=== PATIENT | female | born 1960 | race Caucasian/White ===

== ENCOUNTER → 2019-04-11 09:17 | Outpatient (CLI) | payer BC, SELFPAY ==
--- NOTE | ~2019-04-11 | MR_ITS ---
EXAMINATION: MR knee RT wo con DATE: 04/11/2019 10:12 INDICATION: Medial meniscal tear presenting with stenting generalized right knee pain TECHNIQUE: Magnetic resonance imaging (MRI) of the right knee was performed without intravenous contr ast. Sequences included coronal PD-weighted FSE, coronal PD-weighted FS FSE, sagittal T2-weighted FS E, sagittal PD-weighted FS FSE and axial PD weighted fat saturated FSE. COMPARISON: None. FINDINGS: Medial compartment: Complex tear at the posterior horn of the medial meniscus which involves the free edge, superior and inferior articular surfaces. There is a horizontal longitudinal tear plane extending posteriorly to t he meniscal body which is medially extruded and subluxed caudally along the medial rim of the medial tibial plateau. In this region the meniscus has a thickened globular morphology with prominent increa sed intrasubstance signal suggesting secondary degeneration. Partial-thickness cartilage loss along t he medial tibial plateau and anterior to central weightbearing medial femoral condyle with more focal deep fissuring along the anterior weightbearing medial femoral condyle and anterior aspect of the me dial tibial plateau, the latter with mild underlying subarticular edema. Lateral compartment: Lateral meniscus is normal. Chondral ulceration with underlying small central subchondral osteophytes at the central weightbearing lateral femoral condyle. Cartilage at the lateral tibial plateau appear s relatively preserved. Patellofemoral compartment: Deep chondral ulceration and fissuring at the medial patellar facet, apical ridge and medial aspect o f the lateral facet. Central subchondral osteophyte along the patellar apical ridge projecting up to 2-3 mm beyond the level of the original articular cortex. Partial-thickness cartilage loss with chond ral surface regularity along the medial trochlea with deeper fissuring and ulceration along the infer ior trochlear groove. Ligaments and tendons: Anterior and posterior cruciate ligaments are normal. The medial collateral ligament and fibular lynn ateral ligament complex are normal. The extensor mechanism is normal. The visualized medial and later al hamstring tendons as well as the iliotibial band are normal. Fluid: Physiologic amount of fluid in the joint space. No loose osteochondral bodies identified. Osseous/other: Bone alignment is normal. No fracture or abnormal marrow replacing process. IMPRESSION: 1. Complex medial meniscal tear. 2. Tricompartmental osteoarthritis, moderate severity with moderate to high-grade chondromalacia in t he medial compartment and mild in the lateral and patellofemoral compartments, both with additional r egions of high-grade chondromalacia. Reviewed, dictated and finalized at location A. R HAND IMPRESSION: 1. Complex medial meniscal tear. 2. Tricompartmental osteoarthritis, moderate severity with moderate to high-gra de chondromalacia in the medial compartment and mild in the lateral and patello femoral compartments, both with additional regions of high-grade chondromalacia .
== END ==
PROVIDERS: PCP Orthopaedic Surgery; Visit Provider Orthopaedic Surgery
DX: S83.231A Complex tear of medial meniscus, current injury, right knee, initial encounter (principal); X58.XXXA Exposure to other specified factors, initial encounter; M17.11 Unilateral primary osteoarthritis, right knee
CPT/HCPCS: 73721

== ENCOUNTER 2019-08-19 11:15 | Outpatient (CLI) | payer BC, SELFPAY ==
[2019-08-19 11:52] LABS: Blood Urea Nitrogen 19 mg/dL (7-17); Calcium 9.4 mg/dL (8.4-10.2); Carbon Dioxide 27 mmol/L (22-30); Chloride 103 mmol/L (98-107); Estimated Glomerular Filt Rate 42; Glucose 132 mg/dL (65-105); Potassium 3.5 mmol/L (3.4-5.0); Sodium 140 mmol/L (137-145)
== END 2019-08-19 11:16 | disposition home or self-care (01) ==
LOC: ANHSURGERY 11:17
PROVIDERS: Anesthesiology; PCP Internal Medicine; Visit Provider Orthopaedic Surgery
DX: Z01.818 Encounter for other preprocedural examination (principal); E11.9 Type 2 diabetes mellitus without complications
CPT/HCPCS: 36415; 80048

== ENCOUNTER 2019-08-22 00:24 | Outpatient (CLI) | payer BC, SELFPAY ==
[2019-08-22 17:13] LABS: SARS-CoV-2 RNA PCR Negative
== END 2019-08-22 00:25 | disposition home or self-care (01) ==
LOC: ANHCOVIDDT 00:24
PROVIDERS: PCP Internal Medicine; Visit Provider Orthopaedic Surgery
DX: Z01.812 Encounter for preprocedural laboratory examination (principal); Z11.59 Encounter for screening for other viral diseases
CPT/HCPCS: 87635; C9803; U0003

== ENCOUNTER 2019-08-24 01:30 | Day surgery (SDC) | payer BC, SELFPAY ==
[2019-08-15 14:13] VITALS: BMI 30.4
[2019-08-24] VITALS (9 sets, daily range): BP systolic 111–134; BP diastolic 67–81; PULSE 57–87; RESP 12–18; TEMP 36.3–37; O2SAT 97–100
--- NOTE | 2019-08-24 07:32 | WPDHPUPDATE1 ---
History and Physical Update Update Date/Time: 08/24/19 07:32 History and Physical has been reviewed, including an updated exam of the patient. There are NO changes in the patient's condition. Risks, benefits, and alternatives have been discussed and questions answered. Patient agrees to proceed with procedure.
--- NOTE | 2019-08-24 09:29 | WPDANESEPPF ---
Anes - Initial Pre Proc Eval Procedure: Operation Date: 08/24/19 12:00 Proposed Procedures p Right Knee Arthroscopy, Proceed As Indicated - Michael Samson MD Date/Time: 08/24/19 09:29 Surgeon: Michael Samson MD Pre Op Diagnosis: Right Knee Medial Meniscus Tear Patient Data Age: 58 Gender: F Height: 1.73 m Weight: 90.72 kg Allergies Allergy/AdvReac Type Severity Reaction Status Date / Time No Known Allergies Allergy Verified 08/15/19 14:14 Home Medications Medication Instructions Recorded Confirmed Type glimepiride 4 mg tablet 4 mg PO QAM 03/25/19 08/15/19 History metformin 500 mg tablet 500 mg PO BID 03/25/19 08/15/19 History pantoprazole 40 mg tablet,delayed 40 mg PO BID 03/25/19 08/15/19 History release atorvastatin 40 mg tablet 40 mg PO DAILY #90 tablet 06/15/19 08/15/19 Rx clonazepam 1 mg tablet 1 mg PO DAILY #30 tablet 06/15/19 08/15/19 Rx lisinopril 20 1 tablet PO DAILY #90 tablet 06/15/19 08/15/19 Rx mg-hydrochlorothiazide 25 mg tablet semaglutide 1 mg SUB-Q WEEKLY 06/15/19 08/15/19 History tramadol 50 mg tablet 50 mg PO Q6H PRN #90 tablet 06/15/19 08/15/19 Rx diclofenac sodium 50 mg 50 mg PO BID #60 tablet 07/26/19 08/15/19 Rx tablet,delayed release insulin glargine [Lantus Solostar 20 - 26 unit SUBCUT HS 08/15/19 08/15/19 History U-100 Insulin] ropinirole 0.5 mg PO TID PRN 08/15/19 08/15/19 History chlorhexidine gluconate 4 % 1 applic TOPICAL ONCE #237 ml NS 08/17/19 Rx topical liquid Patient hx anesthesia problems: none Family hx anesthesia problems: none PMFSH Past Medical History Medical History (Updated 08/24/19 @ 09:30 by Sourav Lin MD) Anxiety Diabetes Diabetic polyneuropathy associated with type 2 diabetes mellitus High cholesterol Hypertension Major depressive disorder, single episode, unspecified Obesity Social History Social History Smoking status: Never smoker Alcohol intake: current Anes - Eval Final PreProcedure Day of Procedure 08/24/19 09:29 Patient weight: obese Heart: regular rate and rhythm Lungs: clear to auscultation and normal air movement Airway: Mallampati scale class II Neurological: alert and oriented Last oral intake: >/= 8 hours ASA classification: III Emergent: no Anesthetic plan: proceed Anesthesia type and monitoring: general LMA Informed Consent: The patient's anesthetic plan and its attendant risks and benefits were discussed with the patient/family/POA. Questions were solicited and answers provided to the satisfaction of the patient/family/POA.
[2019-08-24 11:29] LABS: Glucose Point of Care 142 (65-105)
[2019-08-24] MEDS: CELECOXIB 200 MG CAPSULE PO (11:30)
[2019-08-24] MEDS: LACTATED RINGERS 1,000 ML 30 ML IV CONT ×2 (11:30→13:20)
[2019-08-24] MEDS: ceFAZolin 2 GM/D5W 50 ML 2 GM/50 ML BAG IVPB (11:50)
--- NOTE | 2019-08-24 13:17 | PM.OP ---
Procedure Note - Brief Procedure Note - Brief Date of procedure: 08/24/19 Pre-op diagnosis: Right Knee Medial Meniscus Tear Post-op diagnosis: same Procedure performed: R KNEE SCOPE Anesthesia: GLMA Surgeon: Michael Samson MD Estimated blood loss (mL): 10 Complications: No immediate complications Condition: stable Disposition: PACU
[2019-08-24 13:33] LABS: Glucose Point of Care 146 (65-105)
--- NOTE | 2019-08-24 13:38 | SUR.PHASEI ---
1335- foot warm to touch. pulses strong, ice bag to knee.
--- NOTE | 2019-08-24 15:37 | SUR.PHASEII ---
LYRIC UPDATED UPON PT'S ARRIVAL TO OP. CALLED TO PULL UP TO EXIT.
--- NOTE | 2019-08-24 17:18 | OP_ITS ---
DATE OF PROCEDURE: 08/24/2019 POSTOPERATIVE DIAGNOSIS: Right knee medial meniscus tear and DJD. POSTOPERATIVE DIAGNOSIS: Right knee medial meniscus tear and DJD. PROCEDURE: Right knee arthroscopy with partial medial meniscectomy and major synovectomy. ANESTHESIA: General. COMPLICATIONS: None. INDICATIONS: This is a 58-year-old female with medial-sided knee pain that showed as a medial meniscus tear. She was indicated for right knee arthroscopy. DESCRIPTION OF PROCEDURE: The patient was taken to the operative room in stable condition and placed in supine position. General anesthesia was induced and the right lower extremity was sterilely prepped and draped from the toes to the thigh. Superomedial portal was used for an outflow cannula. Inferolateral portal was used for the camera. The camera was introduced. There was grade 3 chondromalacia of the patellofemoral joint. There was a significant amount of synovitis and Hoffa synovium and in the superior medial compartment. Next, the medial compartment was entered. There was a large complex tear of the medial meniscus, which involved the complete posterior horn. There was also significant amount of patchy full-thickness defect or near full thickness defect within the medial femoral condyle. A medial portal was established. The shaver was introduced and then limited chondroplasty was performed on the medial femoral condyle, and then the shaver and a biter were introduced at separate times and the medial meniscus tear was resected down to a smooth base. Next, the ACL was identified and was intact. There was a large osteophyte in the middle of the intercondylar notch in the base of the ACL that was impeding from the full extension, so a bur was used to bur that osteophyte down. She was able to perform full passive extension under direct visualization. Next, the lateral compartment was entered and there was no tear to the lateral meniscus. There was a large chondral defect that underwent chondroplasty. The patellofemoral joint then underwent limited chondroplasty. Synovectomy was performed in Hoffa synovium and then the superior medial compartment. The instruments were removed after thorough irrigation of the knee joint. The wounds were approximated with 4-0 nylon suture. Sterile dressing was applied. The patient was extubated. Efraín I MT: Neema
== END 2019-08-24 15:25 | disposition home or self-care (01) ==
PROVIDERS: PCP Internal Medicine; Visit Provider Orthopaedic Surgery
PROC: (CPT 29870; principal; 2019-08-24 12:00)
DX: M23.331 Other meniscus derangements, other medial meniscus, right knee (principal); M65.861 Other synovitis and tenosynovitis, right lower leg; E11.40 Type 2 diabetes mellitus with diabetic neuropathy, unspecified; I10 Essential (primary) hypertension; E78.00 Pure hypercholesterolemia, unspecified; F41.8 Other specified anxiety disorders; Z79.84 Long term (current) use of oral hypoglycemic drugs; Z79.4 Long term (current) use of insulin; E66.9 Obesity, unspecified; Z68.29 Body mass index [BMI] 29.0-29.9, adult
CPT/HCPCS: 29881; 29876; A9270; J0131; J0690; J1100; J1170; J2250; J2405; J2704; J3010; J7120

== ENCOUNTER 2020-03-08 14:05 | Day surgery (SDC) | payer BC, SELFPAY ==
[2020-03-08] VITALS (8 sets, daily range): BP systolic 103–137; BP diastolic 55–82; PULSE 77–95; RESP 12–18; TEMP 36.7–37; O2SAT 94–100
--- NOTE | 2020-03-08 14:33 | ED.GENADULT ---
HPI - General Adult General Chief complaint: Unspecified Stated complaint: UNABLE TO SWALLOW Time Seen by Provider: 03/08/20 14:16 Source: patient Mode of arrival: ambulatory Limitations: no limitations History of Present Illness HPI narrative: Patient is a 59-year-old female complaining of unable to swallow or keep anything down not even liquids after eating pork chop early this morning. Patient states that she has a history of esophageal stricture and had it dilated before. Patient denies any chest pain, shortness of breath, fever or chills. Related Data Home Medications Medication Instructions Recorded Confirmed glimepiride 4 mg tablet 4 mg PO QAM 03/25/19 12/19/19 pantoprazole 40 mg tablet,delayed 40 mg PO BID 03/25/19 12/19/19 release semaglutide 1 mg SUB-Q WEEKLY 06/15/19 12/19/19 Lantus Solostar U-100 Insulin 20 - 26 unit SUBCUT HS 08/15/19 12/19/19 metformin 500 mg tablet 1,000 mg PO BID tablet 10/19/19 12/19/19 Allergies Allergy/AdvReac Type Severity Reaction Status Date / Time No Known Allergies Allergy Verified 12/19/19 09:07 Review of Systems Review of Systems: All systems reviewed & are unremarkable except as noted in HPI and below Constitutional: Constitutional: Denies body ache(s), Denies chills, Denies excessive sweating, Denies fatigue, Denies fever(s), Denies headache(s), Denies lethargy, Denies malaise, Denies weakness and Denies weight loss Eyes: Eyes: Denies blurry vision, Denies change in vision and Denies loss of vision ENT: Denies dizziness, Denies ear discharge, Denies headache(s), Denies lip swelling, Denies epistaxis, Denies nasal congestion, Denies neck pain, Denies throat swelling and Denies tongue swelling Cardiovascular: Cardiovascular: Denies chest pain, Denies chest pain at rest, Denies chest pain with activity, Denies diaphoresis, Denies rapid heart rate, Denies edema, Denies irregular heart rhythm, Denies lightheadedness, Denies palpitations, Denies dyspnea and Denies dyspnea on exertion Respiratory: Respiratory: Denies chest congestion, Denies cough, Denies hemoptysis, Denies dyspnea and Denies dyspnea on exertion Gastrointestinal: Gastrointestinal: Denies abdominal pain, Denies melena, Denies hematochezia, Denies diarrhea, Denies nausea, Denies vomiting and Denies hematemesis Musculoskeletal: Musculoskeletal: Denies abnormal gait, Denies deformity, Denies joint swelling, Denies limited range of motion, Denies neck pain and Denies numbness Neurologic: Denies Abnormal speech present, Denies abnormal gait, Denies confusion, Denies dizziness, Denies headache(s), Denies focal weakness, Denies loss of vision, Denies numbness, Denies Other visual disturbances, Denies Sensory deficit (Neuro) and Denies weakness Psychiatric: Psychiatric: Denies confusion, Denies depression, Denies auditory hallucinations, Denies homicidal ideation and Denies suicidal ideation Endocrine: Endocrine: Denies cold intolerance, Denies excessive sweating, Denies fatigue, Denies heat intolerance and Denies palpitations Hematologic/Lymphatic: Hematologic/Lymphatic: Denies easy bleeding and Denies easy bruising Allergic/Immunologic: Allergic/Immunologic: Denies lip swelling, Denies throat swelling and Denies tongue swelling PMFSH Past Medical History Medical History (Updated 03/08/20 @ 16:32 by Jeremie Dasilva MD) Anxiety Diabetes Diabetic polyneuropathy associated with type 2 diabetes mellitus High cholesterol Hypertension Major depressive disorder, single episode, unspecified Obesity Surgical History Surgical History S/P knee surgery Family History Family History Father Hypertension Family history of diabetes mellitus in first degree relative, Onset Age: 62 Patient's father is Family history of type 2 diabetes mellitus Family history of lupus erythematosus Mother
[2020-03-08] MEDS: GLUCAGON FOR INJ 1 MG VIAL IV CONT (14:49)
[2020-03-08] MEDS: LACTATED RINGERS 1,000 ML 150 ML IV CONT ×2 (14:50→16:42)
[2020-03-08 14:57] LABS: Basophils Percent Auto 0.4 % (0.2-1.2); Eosinophils Absolute Auto 0.3 K/mm3 (0-0.3); Hemoglobin 11.7 g/dL (12.0-15.0); Immature Granulocyte Absolute 0.02 K/mm3 (0.00-0.031); Immature Granulocyte Percent A 0.2 % (0-0.5); Lymphocytes Absolute Auto 3.57 K/mm3 (0.9-3.2); Lymphocytes Percent Auto 39.6 % (18.3-44.2); Mean Corpuscular HGB Conc 33.4 g/dl (32-36); Mean Corpuscular Hemoglobin 28.8 pg (26-34); Mean Corpuscular Volume 86.2 fl (80-100); Mean Platelet Volume 10.8 fl (7.4-10.4); Monocytes Absolute Auto 0.4 K/mm3 (0.1-0.6); Monocytes Percent Auto 3.9 % (2.6-8.5); Neutrophils Absolute Auto 4.8 K/mm3 (1.3-6.7); Neutrophils Percent Auto 52.9 % (45.5-73.1); Platelet Count Result 269 k/mm3 (150-375); Red Blood Count 4.06 M/mm3 (4.2-5.4); Red Cell Distribution Width 12.5 % (11.5-14.5)
[2020-03-08 15:10] LABS: Alanine Aminotransferase 33 U/L (4-35); Albumin Level 4.3 g/dL (3.5-5.1); Alkaline Phosphatase 75 U/L (38-126); Anion Gap 9 mmol/L (8-16); Aspartate Amino Transferase 29 U/L (14-36); Bilirubin,Total 0.8 mg/dL (0.2-1.3); Blood Urea Nitrogen 18 mg/dL (7-17); Calcium 9.5 mg/dL (8.4-10.2); Carbon Dioxide 29 mmol/L (22-30); Chloride 103 mmol/L (98-107); Estimated CRCL calculation 49 ml/min; Estimated Glomerular Filt Rate 42; Glucose 140 mg/dL (65-105); Lipase 142 U/L (23-300); Potassium 3.6 mmol/L (3.4-5.0); Sodium 141 mmol/L (137-145)
[2020-03-08 15:17] LABS: INR 0.9
[2020-03-08 15:18] LABS: Partial Thromboplastin Time 29.7 SECONDS (22.3-36.8)
--- NOTE | 2020-03-08 16:31 | PC.NURSE ---
Updated pt and spouse, discussed POC, pt is alert and upright on stretcher, VSS.
--- NOTE | 2020-03-08 16:32 | WPDANESEPP ---
Anes - Eval Pre Procedure Procedure: Operation Date: 03/08/20 16:00 Proposed Procedures p Esophagogastroduodenoscopy/Stent Removal - Josafat Washburn MD Date/Time: 03/08/20 16:32 Pre Op Diagnosis: UNABLE TO SWALLOW Patient Data Age: 59 Gender: F Height: 5 ft 8 in Weight: 86.5 kg Last Vital Signs Temp 98.0 F 03/08/20 14:35 Pulse 77 03/08/20 16:30 Resp 13 03/08/20 16:30 BP 131/81 03/08/20 16:30 Pulse Ox 100 03/08/20 16:30 Allergies Allergy/AdvReac Type Severity Reaction Status Date / Time No Known Allergies Allergy Verified 12/19/19 09:07 Home Medications Medication Instructions Recorded Confirmed Type glimepiride 4 mg tablet 4 mg PO QAM 03/25/19 12/19/19 History pantoprazole 40 mg tablet,delayed 40 mg PO BID 03/25/19 12/19/19 History release lisinopril 20 1 tablet PO DAILY #90 tablet 06/15/19 12/19/19 Rx mg-hydrochlorothiazide 25 mg tablet semaglutide 1 mg SUB-Q WEEKLY 06/15/19 12/19/19 History Lantus Solostar U-100 Insulin 20 - 26 unit SUBCUT HS 08/15/19 12/19/19 History metformin 500 mg tablet 1,000 mg PO BID tablet 10/19/19 12/19/19 History rosuvastatin 40 mg tablet 40 mg PO DAILY #90 tablet 12/15/19 12/19/19 Rx tramadol 50 mg tablet 50 mg PO Q6H PRN #90 tablet 01/05/20 Rx clonazepam 1 mg tablet 1 mg PO DAILY #30 tablet 02/13/20 Rx Laboratory Tests 03/08/20 03/08/20 03/08/20 14:51 14:51 14:51 WBC 9.0 K/mm3 K/mm3 (4.5-10.0) RBC 4.06 M/mm3 L M/mm3 (4.2-5.4) Hgb 11.7 g/dL L g/dL (12.0-15.0) Hct 35.0 % L % (37.0-47.0) MCV 86.2 fl fl (80-100) MCH 28.8 pg pg (26-34) MCHC 33.4 g/dl g/dl (32-36) RDW 12.5 % % (11.5-14.5) Plt Count 269 k/mm3 k/mm3 (150-375) MPV 10.8 fl H fl (7.4-10.4) Immature Gran % (Auto) 0.2 % % (0-0.5) Neut % (Auto) 52.9 % % (45.5-73.1) Lymph % (Auto) 39.6 % % (18.3-44.2) Johnston % (Auto) 3.9 % % (2.6-8.5) Eos % (Auto) 3.0 % % (0-4.4) Baso % (Auto) 0.4 % % (0.2-1.2) Lymph # (Auto) 3.57 K/mm3 H K/mm3 (0.9-3.2) Johnston # (Auto) 0.4 K/mm3 K/mm3 (0.1-0.6) Eos # (Auto) 0.3 K/mm3 K/mm3 (0-0.3) Baso # (Auto) 0.0 K/mm3 K/mm3 (0.0-0.1) Abs Immat Gran (auto) 0.02 K/mm3 K/mm3 (0.00-0.031) Absolute Neuts (auto) 4.8 K/mm3 K/mm3 (1.3-6.7) Absolute Nucleated RBC 0.0 K/mm3 K/mm3 (0.0-0.012) Nucleated RBC % 0.0 % % (0.0-0.2) PT 13.0 Seconds Seconds (11.1-14.7) INR 0.9 APTT 29.7 SECONDS SECONDS (22.3-36.8) Sodium 141 mmol/L mmol/L (137-145) Potassium 3.6 mmol/L mmol/L (3.4-5.0) Chloride 103 mmol/L mmol/L (98-107) Carbon Dioxide 29 mmol/L mmol/L (22-30) Anion Gap 9 mmol/L mmol/L (8-16) BUN 18 mg/dL H mg/dL (7-17) Creatinine 1.30 mg/dL H mg/dL (0.7-1.0) Estim Creat Clear Calc 49 ml/min ml/min Estimated GFR 42 L (59 - ) Glucose 140 mg/dL H mg/dL (65-105) Calcium 9.5 mg/dL mg/dL (8.4-10.2) Total Bilirubin 0.8 mg/dL mg/dL (0.2-1.3) AST 29 U/L U/L (14-36) ALT 33 U/L U/L (4-35) Alkaline Phosphatase 75 U/L U/L (38-126) Total Protein 8.0 g/dL g/dL (6.3-8.2) Albumin 4.3 g/dL g/dL (3.5-5.1) Lipase 142 U/L U/L (23-300) Patient hx anesthesia problems: none Family hx anesthesia problems: none PMFSH Past Medical History Medical History Anxiety Diabetes Diabetic polyneuropathy associated with type 2 diabetes mellitus Essential (primary) hypertension Fatty (change of) liver, not elsewhere classified Food impaction of esophagus High cholesterol Hypertension Major depressive disorder, single episode, unspecif
[2020-03-08 16:46] LABS: Glucose Point of Care 139 (65-105)
--- NOTE | 2020-03-08 17:32 | WPDGICN ---
Assessment and Plan Assessment and plan (1) Food impaction of esophagus: Qualifiers: Encounter type: initial encounter Qualified Code(s): T18.128A - Food in esophagus causing other injury, initial encounter Code(s): T18.128A - Food in esophagus causing other injury, initial encounter Status: Acute Assessment and Plan: patient with a long history of GE reflux. Has had progressive dysphagia over recent months. Now presents with food impaction. Plan is for an EGD. Long-term anti-reflux measures and continuing proton pump inhibitor therapy will be essential period of further recommendations will be given after endoscopy today (2) GERD (gastroesophageal reflux disease): Code(s): K21.9 - Gastro-esophageal reflux disease without esophagitis Status: Acute (3) Dysphagia: Code(s): R13.10 - Dysphagia, unspecified Status: Acute GI Consult Note Consult date/time: 03/08/20 17:32 HPI: Ciara Ramos is a 59 year old female Seen in evaluation at the request of the emergency room. Patient has a known history of acid reflux. Has been maintained on pantoprazole 40 mg p.o. b.i.d.. Continues to have intermittent indigestion. Since November over the last 2-3 months has had difficulty swallowing. Food will catch in the mid substernal portion of the chest. She it was advised to proceed with EGD. However defer this because of the recent viral pandemic. This morning she ate pork steaks. And since 9:00 a.m. is been unable to eat or swallow even her own saliva. She presented to the emergency room for further evaluation. She complains of substernal chest pain. She has a bad where she spits her continuous saliva production. She has had no bleeding. She denies any weight loss. Her family history is noncontributory. Review of Systems Review of Systems: All systems reviewed & are unremarkable except as noted in HPI and below PMFSH Past Medical History Medical History Anxiety Diabetes Diabetic polyneuropathy associated with type 2 diabetes mellitus Essential (primary) hypertension Fatty (change of) liver, not elsewhere classified Food impaction of esophagus High cholesterol Hypertension Major depressive disorder, single episode, unspecified Obesity Restless legs syndrome Type 2 diabetes mellitus without complications Urge incontinence of urine Surgical History Surgical History S/P knee surgery Family History Family History Father Hypertension Family history of diabetes mellitus in first degree relative, Onset Age: 62 Patient's father is Family history of type 2 diabetes mellitus Family history of lupus erythematosus Mother Hypertension Carcinoma of colon Family history of type 2 diabetes mellitus Patient's mother is Sibling Hypertension Patient's sister is in good health Other Diabetes mellitus Family history of arthritis Social History Social History Smoking status: Never smoker Alcohol intake: never Substance use: never Substance use type: does not use Gender identity (if verbalized by the patient): Female Spiritual care concerns: No Meds Home Medications and Allergies Home Medications Medication Instructions Recorded Confirmed Type glimepiride 4 mg tablet 4 mg PO QAM 03/25/19 12/19/19 History pantoprazole 40 mg tablet,delayed 40 mg PO BID 03/25/19 12/19/19 History release lisinopril 20 1 tablet PO DAILY #90 tablet 06/15/19 12/19/19 Rx mg-hydrochlorothiazide 25 mg tablet semaglutide 1 mg SUB-Q WEEKLY 06/15/19 12/19/19 History Lantus Solostar U-100 Insulin 20 - 26 unit SUBCUT HS 08/15/19 12/19/19 History metformin 500 mg tablet 1,000 mg PO BID tablet 10/19/19 12/19/19 History rosuvas
== END 2020-03-08 18:07 | disposition home or self-care (01) ==
LOC: ANHED 14:35 → ANHENDO 16:23
PROVIDERS: Emergency Provider Emergency Medicine; PCP Internal Medicine; Visit Provider Internal Medicine Gastroenterology
PROC: 0DP08DZ Removal of Intraluminal Device from Upper Intestinal Tract, Via Natural or Artificial Opening Endoscopic (ICD-10-PCS; CPT 43247; principal; 2020-03-08 16:00)
DX: T18.128A Food in esophagus causing other injury, initial encounter (principal); K22.2 Esophageal obstruction; Z79.84 Long term (current) use of oral hypoglycemic drugs; F41.9 Anxiety disorder, unspecified; E11.42 Type 2 diabetes mellitus with diabetic polyneuropathy; E78.00 Pure hypercholesterolemia, unspecified; I10 Essential (primary) hypertension; F32.9 Major depressive disorder, single episode, unspecified
CPT/HCPCS: 43247; 43450; 36415; 80053; 83690; 85025; 85610; 85730; 96361; 96374; 99285; J1610; J2704; J7120

== ENCOUNTER 2020-05-17 09:35 | Outpatient (CLI) | payer BC, SELFPAY ==
--- NOTE | ~2020-05-17 | MM_ITS ---
EXAMINATION: MM scrn haylie implant BI w alina HISTORY: Screening mammogram TECHNIQUE: Craniocaudal and mediolateral oblique 3-D tomosynthesis images with implant displacement a nd synthetic 2-D images were generated. Craniocaudal and mediolateral oblique views of the breasts wi thout implant displacement were obtained using full field digital mammography. CAD analysis was submi tted and interpreted. COMPARISON: Comparison to multiple prior studies sequentially, with oldest reviewed study dated 08/15. BREAST PARENCHYMAL COMPOSITION: The breasts are heterogeneously dense, which may obscure small masses .. FINDINGS: There are bilateral subpectoral saline implants. There are benign bilateral breast calcific ations. Bilateral breast asymmetries are stable. There is no evidence of suspicious mass, calcificati on, or architectural distortion to suggest malignancy in either breast. There has been no suspicious interval change. IMPRESSION: 1. No mammographic evidence of malignancy. 2. Recommend routine screening mammography in one year. BI-RADS Category 2: Benign finding(s). Reviewed, dictated and finalized at location A.
--- NOTE | ~2020-05-17 | DEXA_ITS ---
Bone Density Report Name: Ciara Ramos Age: 59 Sex: Female Ethnicity: White Date of : 1960 Indication: postmenopausal; height loss; Referring Provider: PA PARRA Study: Bone densitometry was performed. Exam Date: May 17, 2020 Accession number: [id number] Bone Density: Region BMD T-score Z-score Classification AP Spine (L1-L4) 0.938 -1.0 0.2 Normal Femoral Neck (Left) 0.814 -0.3 0.8 Normal Total Hip (Left) 0.950 0.1 0.9 Normal Total Hip Bilateral Avg 0.945 0.1 0.8 Normal Femoral Neck (Right) 0.815 -0.3 0.9 Normal Total Hip (Right) 0.939 0.0 0.8 Normal World Health Organization criteria for BMD impression classify patients as: Normal (T-score at or above -1.0), Osteopenia (T-score between -1.0 and -2.5), or Osteoporosis (T-score at or below -2.5). 10-year Fracture Risk: FRAX not reported because: All T-scores for Spine Total, Hip Total, Femoral Neck at or above -1.0 Clinical Information Provided by Patient: Patient maximum height was 68 Menopause Age: 49 No regular weight bearing exercise Onset of menses at age 14 Number of children 6 Impression: The patient has normal bone mass. Discussion: BONE DENSITY IS ABOVE THE MINIMUM DESIRABLE LEVEL AT ALL SKELETAL SITES TESTED. This patient?s bone mineral density is above the minimum desirable level (T-score -1.0 or better) at all sites measured. The patient should follow a healthful lifestyle (good nutrition with adequate calcium and vitamin D, and appropriate weight-bearing exercise). Follow-Up: Consider repeating this study in 5 years or sooner if there is some new clinical indication. Reported by: AGUILAR on 05/17/2020 10:06:00 AM. Reviewed, dictated and finalized at location AAiyana ODEN
== END 2020-05-17 09:36 | disposition home or self-care (01) ==
PROVIDERS: PCP Internal Medicine; Visit Provider Obstetrics & Gynecology
DX: Z12.31 Encounter for screening mammogram for malignant neoplasm of breast (principal); Z78.0 Asymptomatic menopausal state
CPT/HCPCS: 77063; 77067; 77080

== ENCOUNTER → 2020-05-29 00:20 | Outpatient (CLI) | payer BC, SELFPAY ==
[2020-05-29 18:30] LABS: SARS-CoV-2 RNA PCR Negative
== END ==
PROVIDERS: PCP Internal Medicine; Visit Provider Internal Medicine Gastroenterology
DX: Z01.812 Encounter for preprocedural laboratory examination (principal); Z20.822 Contact with and (suspected) exposure to COVID-19
CPT/HCPCS: C9803; U0003; U0005

== ENCOUNTER 2020-06-01 04:14 | Day surgery (SDC) | payer BC, SELFPAY ==
[2020-05-17 14:14] VITALS: BMI 29.5
[2020-06-01 07:40] VITALS: BP 142/79; PULSE 107; RESP 20; TEMP 35.7; O2SAT 99; BMI 28.8
[2020-06-01] MEDS: LACTATED RINGERS 1,000 ML 150 ML IV CONT (07:56)
[2020-06-01 07:57] LABS: Glucose Point of Care 167 (65-105)
--- NOTE | 2020-06-01 08:06 | WPDANESEPPF ---
Anes - Initial Pre Proc Eval Procedure: Operation Date: 06/01/20 08:30 Proposed Procedures p Esophagogastroduodenoscopy - Dave Hutchins MD Date/Time: 06/01/20 08:06 Surgeon: Dave Hutchins MD Pre Op Diagnosis: Dysphagia Patient Data Age: 59 Gender: F Height: 5 ft 8 in Weight: 86.2 kg Last Vital Signs Temp 96.2 F L 06/01/20 07:40 Pulse 107 H 06/01/20 07:40 Resp 20 06/01/20 07:40 BP 142/79 H 06/01/20 07:40 Pulse Ox 99 06/01/20 07:40 Allergies Allergy/AdvReac Type Severity Reaction Status Date / Time No Known Allergies Allergy Verified 06/01/20 07:38 Home Medications Medication Instructions Recorded Confirmed Type glimepiride 4 mg tablet 4 mg PO BID 03/25/19 05/17/20 History pantoprazole 40 mg tablet,delayed 40 mg PO BID 03/25/19 05/17/20 History release semaglutide 1 mg SUB-Q WEEKLY 06/15/19 05/17/20 History Lantus Solostar U-100 Insulin 18 - 22 unit SUBCUT HS 08/15/19 05/17/20 History tramadol 50 mg tablet 50 mg PO Q6H PRN #90 tablet 03/12/20 05/17/20 Rx rosuvastatin 40 mg tablet 40 mg PO DAILY #90 tablet 04/09/20 05/17/20 Rx cholecalciferol (vitamin D3) 125 mcg PO WEEKLY 05/17/20 05/17/20 History [Vitamin D3] diclofenac sodium 50 mg PO BID PRN 05/17/20 05/17/20 History gabapentin 300 mg PO TID 05/17/20 05/17/20 History lisinopril-hydrochlorothiazide 1 tablet PO DAILY 05/17/20 05/17/20 History metformin 1,000 mg PO BID 05/17/20 05/17/20 History ropinirole 0.5 mg PO DAILY 05/17/20 06/01/20 History clonazepam 1 mg tablet 1 mg PO DAILY PRN #30 tablet 05/29/20 Rx Laboratory Tests 06/01/20 07:52 POC Capillary Glucose 167 mg/dl H mg/dl (65-105) Patient hx anesthesia problems: none Family hx anesthesia problems: none [facility] Past Medical History Medical History Anxiety Diabetes Diabetic polyneuropathy associated with type 2 diabetes mellitus Essential (primary) hypertension Fatty (change of) liver, not elsewhere classified Food impaction of esophagus High cholesterol Hypertension Major depressive disorder, single episode, unspecified Obesity Restless legs syndrome Type 2 diabetes mellitus without complications Urge incontinence of urine Surgical History Surgical History S/P knee surgery Family History Family History Father Hypertension Family history of diabetes mellitus in first degree relative, Onset Age: 62 Patient's father is Family history of type 2 diabetes mellitus Family history of lupus erythematosus Mother Hypertension Carcinoma of colon Family history of type 2 diabetes mellitus Patient's mother is Sibling Hypertension Patient's sister is in good health Other Diabetes mellitus Family history of arthritis Social History Social History Smoking status: Never smoker Alcohol intake: never Substance use: never Substance use type: does not use Living arrangements: with family Gender identity (if verbalized by the patient): Female Spiritual care concerns: No Anes - Eval Final PreProcedure Day of Procedure 06/01/20 08:06 Patient weight: overweight Heart: regular rate and rhythm Lungs: clear to auscultation Airway: Mallampati scale class III Neurological: alert and oriented Last oral intake: >/= 8 hours ASA classification: III Emergent: no Anesthetic plan: proceed Anesthesia type and monitoring: general GIVS and standard monitoring Informed Consent: The patient's anesthetic plan and its attendant risks and benefits were discussed with the patient/family/POA. Questions were solicited and answers provided to the satisfaction of the patient/family/POA.
--- NOTE | 2020-06-01 08:25 | PM.HPGS ---
History of Present Illness History of Present Illness Consent: Risks, benefits, and alternatives have been discussed and questions answered. Patient agrees to proceed with procedure. Chief complaint: Dysphagia Narrative: Ciara Ramos is a 59 year old female with dysphagia. Several weeks ago she presented with a foreign body of the esophagus and was found to have a stricture at the gastroesophageal junction which was dilated with Mccallum dilators. She was told to repeat turn for further treatment because she could not be dilated very much at that time. She has a persistent pain in the subxiphoid area despite taking Protonix twice a day for the last couple of years. This pain is always worse after she eats. Review of Systems Review of Systems: All systems reviewed & are unremarkable except as noted in HPI and below PMFSH Past Medical History Medical History Anxiety Diabetes Diabetic polyneuropathy associated with type 2 diabetes mellitus Essential (primary) hypertension Fatty (change of) liver, not elsewhere classified Food impaction of esophagus High cholesterol Hypertension Major depressive disorder, single episode, unspecified Obesity Restless legs syndrome Type 2 diabetes mellitus without complications Urge incontinence of urine Surgical History Surgical History S/P knee surgery Family History Family History Father Hypertension Family history of diabetes mellitus in first degree relative, Onset Age: 62 Patient's father is Family history of type 2 diabetes mellitus Family history of lupus erythematosus Mother Hypertension Carcinoma of colon Family history of type 2 diabetes mellitus Patient's mother is Sibling Hypertension Patient's sister is in good health Other Diabetes mellitus Family history of arthritis Social History Social History Smoking status: Never smoker Alcohol intake: never Substance use: never Substance use type: does not use Living arrangements: with family Gender identity (if verbalized by the patient): Female Spiritual care concerns: No Meds Home Medications and Allergies Home Medications Medication Instructions Recorded Confirmed Type glimepiride 4 mg tablet 4 mg PO BID 03/25/19 05/17/20 History pantoprazole 40 mg tablet,delayed 40 mg PO BID 03/25/19 05/17/20 History release semaglutide 1 mg SUB-Q WEEKLY 06/15/19 05/17/20 History Lantus Solostar U-100 Insulin 18 - 22 unit SUBCUT HS 08/15/19 05/17/20 History tramadol 50 mg tablet 50 mg PO Q6H PRN #90 tablet 03/12/20 05/17/20 Rx rosuvastatin 40 mg tablet 40 mg PO DAILY #90 tablet 04/09/20 05/17/20 Rx cholecalciferol (vitamin D3) 125 mcg PO WEEKLY 05/17/20 05/17/20 History [Vitamin D3] diclofenac sodium 50 mg PO BID PRN 05/17/20 05/17/20 History gabapentin 300 mg PO TID 05/17/20 05/17/20 History lisinopril-hydrochlorothiazide 1 tablet PO DAILY 05/17/20 05/17/20 History metformin 1,000 mg PO BID 05/17/20 05/17/20 History ropinirole 0.5 mg PO DAILY 05/17/20 06/01/20 History clonazepam 1 mg tablet 1 mg PO DAILY PRN #30 tablet 05/29/20 Rx Allergies Allergy/AdvReac Type Severity Reaction Status Date / Time No Known Allergies Allergy Verified 06/01/20 07:38 Vital Signs Vital Signs - 24 hr 06/01/20 07:40 Temperature 35.7 C L Pulse Rate 107 H Respiratory Rate 20 Blood Pressure 142/79 H Pulse Oximetry 99 Exam Const: General: alert Orientation/consciousness: patient oriented x3 Resp: Auscultation: clear to auscultation bilaterally Cardio: Rhythm: regular rhythm GI: GI Palp: Yes Soft to palpation and No Tenderness to palpation present (GI) Neuro: General: patient oriented x3 Assessment and Plan Assessment and plan (1) D
[2020-06-01 08:54] VITALS: BP 97/62; PULSE 85; RESP 15; O2SAT 96
[2020-06-01 09:04] VITALS: BP 105/66; PULSE 82; RESP 14; O2SAT 94
[2020-06-01 09:14] VITALS: BP 113/69; PULSE 81; RESP 12; O2SAT 95
== END 2020-06-01 09:24 | disposition home or self-care (01) ==
PROVIDERS: PCP Internal Medicine; Visit Provider Internal Medicine Gastroenterology
PROC: 0DJ08ZZ Inspection of Upper Intestinal Tract, Via Natural or Artificial Opening Endoscopic (ICD-10-PCS; CPT 43235; principal; 2020-06-01 08:30)
DX: R13.10 Dysphagia, unspecified (principal); K22.2 Esophageal obstruction; Z79.84 Long term (current) use of oral hypoglycemic drugs; F41.9 Anxiety disorder, unspecified; E11.21 Type 2 diabetes mellitus with diabetic nephropathy; I10 Essential (primary) hypertension; F32.9 Major depressive disorder, single episode, unspecified; G25.81 Restless legs syndrome; E78.00 Pure hypercholesterolemia, unspecified; K76.0 Fatty (change of) liver, not elsewhere classified
CPT/HCPCS: 43239; 43249; 87081; C1726; J2001; J2704; J7120

== ENCOUNTER → 2020-10-03 12:03 | Outpatient (CLI) | payer BC, SELFPAY ==
--- NOTE | ~2020-10-03 | XR_ITS ---
XR_CERV2-3V_CR DATE: 10/03/2020 12:30 INDICATION: Neck pain TECHNIQUE: AP, open-mouth, odontoid, lateral, swimmer views COMPARISON: None FINDINGS: There is straightening of the cervical spine which may be due to muscle spasm. C1 and C2 are normally aligned and the odontoid process is intact. No fracture or dislocation or lock ed facet. No prevertebral soft tissue swelling. Moderate loss of interspace height at C5-6 with anterior spurring. IMPRESSION: Straightening, which may be due to muscle spasm Moderate degenerative disc disease at C5-6 Reviewed, dictated and finalized at Location [facility]. Reviewed, dictated and finalized at location B.
== END ==
PROVIDERS: PCP Internal Medicine; Visit Provider Nurse Practitioner
DX: M47.812 Spondylosis without myelopathy or radiculopathy, cervical region (principal)
CPT/HCPCS: 72040

== ENCOUNTER 2021-06-19 10:23 | Outpatient (CLI) | payer BC, SELFPAY ==
--- NOTE | ~2021-06-19 | MM_ITS ---
EXAMINATION: MM scrn haylie implant BI w alina HISTORY: Screening mammogram TECHNIQUE: Craniocaudal and mediolateral oblique 3-D tomosynthesis images with implant displacement a nd synthetic 2-D images were generated. Craniocaudal and mediolateral oblique views of the breasts wi thout implant displacement were obtained using full field digital mammography. CAD analysis was submi tted and interpreted. COMPARISON: 05/17/2020, 09/20/2018, 08/26/2017 bilateral implant screening mammogram examinations BREAST PARENCHYMAL COMPOSITION: The breasts are heterogeneously dense, which may obscure small masses . FINDINGS: Status post bilateral augmentation mammoplasty; there is interval rupture of the left impla nt. Since 05/17/2020 There are chronic scattered bilateral benign calcifications. There is no evidence of suspicious mass, calcification, or architectural distortion to suggest malignancy in either breast. There has been no suspicious interval change. IMPRESSION: 1. No mammographic evidence of malignancy. 2. Recommend routine screening mammography in one year. BI-RADS Category 2: Benign finding(s). Reviewed, dictated and finalized at location A.
== END 2021-06-19 10:24 | disposition home or self-care (01) ==
LOC: ANHIMG 10:24
PROVIDERS: PCP Internal Medicine; Visit Provider Obstetrics & Gynecology
DX: Z12.31 Encounter for screening mammogram for malignant neoplasm of breast (principal)
CPT/HCPCS: 77063; 77067

== ENCOUNTER 2021-07-09 13:11 | Outpatient (CLI) | payer BC, SELFPAY ==
--- NOTE | ~2021-07-09 | XR_ITS ---
XR chest 2V DATE: 07/09/2021 13:28 INDICATION: Abnormal weight loss for 6 months TECHNIQUE: PA and lateral views COMPARISON: 10/28/2018 PA and lateral chest FINDINGS: Normal heart size. No hilar or mediastinal enlargement. No pulmonary infiltrate or consolid ation, pleural effusion or pulmonary vascular congestion or pneumothorax. IMPRESSION: No active cardiopulmonary disease Reviewed, dictated and finalized at location B.
== END 2021-07-09 13:12 | disposition home or self-care (01) ==
PROVIDERS: PCP Internal Medicine; Visit Provider Internal Medicine
DX: R63.4 Abnormal weight loss (principal)
CPT/HCPCS: 71046

== ENCOUNTER 2021-07-12 15:08 | Outpatient (CLI) | payer BC, SELFPAY ==
--- NOTE | ~2021-07-12 | CT_ITS ---
EXAMINATION: CT abdomen wo con DATE: 07/12/2021 15:43 INDICATION: Unspecified abdominal pain. TECHNIQUE: Computed tomography (CT) of the abdomen was performed without intravenous contrast. Automa krunal exposure control and iterative reconstruction technique were employed. The dose-length product wa s 311.03 mGy-cm. COMPARISON: CT abdomen and pelvis 07/14/2016 FINDINGS: The visualized portions of the lung bases demonstrate mild atelectasis. No pleural effusion . The heart size is normal. No pericardial effusion. Partially visualized are breast implants. There is diffuse hepatic steatosis. The gallbladder is normal. Calcifications in the spleen are consistent with old granulomatous disease. The pancreas and adrenal glands are normal. There is cortical thinnin g of right kidney. There is a 2 mm calcification in left kidney, likely parenchymal. There are no dil ated loops of bowel. There are no pathologically enlarged lymph nodes. There is a small sliding hiata l hernia. There is an umbilical hernia containing fat. There is no free intraperitoneal fluid. There is mild lumbar spondylosis. IMPRESSION: 1. Diffuse hepatic steatosis. 2. Small sliding hiatal hernia. 3. Umbilical hernia containing fat. Reviewed, dictated and finalized at location A.
== END 2021-07-12 15:09 | disposition home or self-care (01) ==
LOC: ANHIMG 15:12
PROVIDERS: PCP Internal Medicine; Visit Provider Internal Medicine
DX: R10.9 Unspecified abdominal pain (principal); K76.0 Fatty (change of) liver, not elsewhere classified; K44.9 Diaphragmatic hernia without obstruction or gangrene; K42.9 Umbilical hernia without obstruction or gangrene
CPT/HCPCS: 74150

== ENCOUNTER → 2021-09-11 15:23 | Outpatient (CLI) | payer BC, SELFPAY ==
--- NOTE | ~2021-09-11 | US_ITS ---
US retroperitoneal comp 09/11/2021 15:46 Procedure: Realtime transabdominal ultrasound of the kidneys and bladder. Indication: Chronic kidney disease Comparison: No prior studies for comparison. Findings: Renal echotexture is normal bilaterally without hydronephrosis, contour deforming mass or r enal calculus. The right kidney measures 11.3 cm and left kidney measures 11.5 cm. Bladder within no rmal limits. Impression: 1: Unremarkable renal ultrasound. No stones, masses or hydronephrosis. Reviewed, dictated and finalized at location A. Impression: 1: Unremarkable renal ultrasound. No stones, masses or hydronephrosis.
== END ==
PROVIDERS: PCP Internal Medicine; Visit Provider Internal Medicine Nephrology
DX: I12.9 Hypertensive chronic kidney disease with stage 1 through stage 4 chronic kidney disease, or unspecified chronic kidney disease (principal); N18.32 Chronic kidney disease, stage 3b; E11.22 Type 2 diabetes mellitus with diabetic chronic kidney disease
CPT/HCPCS: 76770

== ENCOUNTER 2021-10-21 09:58 | Outpatient (CLI) | payer BC, SELFPAY ==
--- NOTE | ~2021-10-21 | XR_ITS ---
EXAMINATION: XR_RIBSRTCXR1_CR DATE: 10/21/2021 10:18 INDICATION: Right chest pain. TECHNIQUE: A frontal view of the chest and 2 views on 3 radiographs of the right ribs were obtained. COMPARISON: Chest 2 views 07/09/2021 FINDINGS: The chest demonstrates clear lungs without pneumonia, pleural effusion, or pneumothorax. Th e heart size is normal. IMPRESSION: 1. No rib fracture. Reviewed, dictated and finalized at location A. IMPRESSION: 1. No rib fracture.
== END 2021-10-21 09:59 | disposition home or self-care (01) ==
PROVIDERS: PCP Internal Medicine; Visit Provider Internal Medicine
DX: R07.81 Pleurodynia (principal)
CPT/HCPCS: 71101

== ENCOUNTER 2022-04-28 11:15 | Outpatient (CLI) | payer BC, SELFPAY ==
[2022-04-28 12:44] LABS: Hematocrit 35.6 % (37.0-47.0); Hemoglobin 11.5 g/dL (12.0-15.0); Mean Corpuscular HGB Conc 32.3 g/dl (32-36); Mean Corpuscular Hemoglobin 28.1 pg (26-34); Mean Platelet Volume 10.5 fl (7.4-10.4); Platelet Count Result 326 k/mm3 (150-375); Red Blood Count 4.09 M/mm3 (4.2-5.4); Red Cell Distribution Width 12.4 % (11.5-14.5); White Blood Count 8.6 K/mm3 (4.5-10.0)
[2022-04-28 13:13] LABS: Anion Gap 10 mmol/L (8-16); Blood Urea Nitrogen 25 mg/dL (7-17); Calcium 9.5 mg/dL (8.4-10.2); Carbon Dioxide 27 mmol/L (22-30); Chloride 97 mmol/L (98-107); Estimated Glomerular Filt Rate 51; Glucose 143 mg/dL (65-110); Potassium 3.7 mmol/L (3.4-5.0); Sodium 134 mmol/L (137-145)
[2022-04-28 17:10] LABS: Hemoglobin A1C 6.3 % (<5.7)
== END 2022-04-28 11:16 | disposition home or self-care (01) ==
PROVIDERS: PCP Internal Medicine; Visit Provider Surgery Plastic and Reconstructive Surgery
DX: E11.9 Type 2 diabetes mellitus without complications (principal)
CPT/HCPCS: 36415; 80048; 83036; 85027

== ENCOUNTER 2022-05-02 09:33 | Outpatient (CLI) | payer BC, SELFPAY ==
--- NOTE | 2022-05-02 10:01 | ECG_ITS ---
Measurements Intervals [place] Rate: 50 P: 63 MN: 180 QRS: -9 QRSD: 100 T: 19 QT: 361 QTc: 332 Interpretive Statements SINUS BRADYCARDIA BASELINE ARTIFACT- I, II, III, AVR, AVL, AVF BORDERLINE ECG COMPARED TO ECG 08/27/2018 11:11:30 NO SIGNIFICANT CHANGES Electronically Signed On 05-02-2022 10:43:28 BOAT DRIVER by Alpesh Kang D.O.
[2022-05-02 10:42] LABS: Prothrombin Time 12.6 Seconds (11.1-14.7)
[2022-05-02 10:43] LABS: Partial Thromboplastin Time 28.6 SECONDS (22.3-36.8)
== END 2022-05-02 09:34 | disposition home or self-care (01) ==
PROVIDERS: Anesthesiology; PCP Internal Medicine; Visit Provider Surgery Plastic and Reconstructive Surgery
DX: N18.32 Chronic kidney disease, stage 3b (principal); E11.22 Type 2 diabetes mellitus with diabetic chronic kidney disease
CPT/HCPCS: 36415; 85610; 85730; 93005

== ENCOUNTER 2022-05-06 00:44 | Day surgery (SDC) | payer OTHER, SELFPAY ==
[2022-04-28 14:57] VITALS: BMI 26.6
--- NOTE | 2022-04-28 15:01 | PC.NURSE ---
Report to the Outpatient Waiting Room, entrance under the green pavilion located off [facility], at time 6:00 on date 05/06/22. Planned Procedure Time: 7:30. Time changes happen often and if your time is changed the preop area will call you the afternoon before. - You and your visitor will be asked to self-screen and do not enter if you have any COVID symptoms. - Only one visitor is requested with a max of two and NO children visitors are allowed at this time. - The patient visitor may be requested to leave or wait in car when not with patient due to distancing restrictions. - A mask is optional within the hospital at this time. Patients may have clear liquids (water, carbonated beverages, clear teas, apple juice) until 3 hours prior to surgery (4:30) with a maximum of 20 ounces. - No food from midnight until time of surgery Take the following medications with a SIP of water the morning of surgery: GABAPENTIN. CLONAZEPAM, TIZANIDINE, TRAMADOL IF NEEDED DO NOT STOP ANY OF YOUR OTHER PRESCRIPTION MEDICATIONS PRIOR TO SURGERY EXCEPT THE FOLLOWING Medications to discontinue per physician: VITAMINS Date to take last dose: 05/02/22 Please no make-up, nail danish, hairspray, perfume, deodorant, or body powder the day of surgery. No jewelry (including any body piercings) or valuables the day of surgery, leave them at home. Please take a shower or bath the night before, or the morning of, surgery with an antibacterial soap. Wear comfortable, loose fitting clothing. - Jewelry must be removed prior to entering the operating room. Rings and piercings that are not removed may be cut off. - The hospital will not accept responsibility for valuables. - Please leave all valuables, including medications, at home the day of surgery. If you are going home after surgery, a licensed chuck wagon driver must drive you home. - NO public transportation without another adult if you receive anesthesia. - We recommend that an adult stay with you for 24 hours following discharge. - We also recommend that you do not drive, make important decision, drink alcoholic beverages, or take any drugs that were not prescribed by your health care provider for at least 24 hours after your discharge time. Follow any additional instructions given to you from your surgeon. If you or anyone in your household have experienced Covid symptoms in the past week, please notify your surgeon or the nurse liaison at the phone number below for possible testing. Telephone instructions given to PT - DEVONTE GRULLON and asked if any additional questions and then verbalized understanding. Patient advised to call surgeon office or pre surgery nurse liaison [phone] if any additional questions.
[2022-05-06] VITALS (11 sets, daily range): BP systolic 113–133; BP diastolic 58–82; PULSE 70–100; RESP 14–24; TEMP 36.5; O2SAT 97–100
[2022-05-06 06:38] LABS: Urine Cotinine NEGATIVE
[2022-05-06] MEDS: LACTATED RINGERS 1,000 ML 30 ML IV CONT ×3 (06:40→11:28)
[2022-05-06 06:45] LABS: Glucose Point of Care 134 mg/dl (65-105)
--- NOTE | 2022-05-06 07:18 | WPDHPUPDATE1 ---
History and Physical Update Update Date/Time: 05/06/22 07:18 History and Physical has been reviewed, including an updated exam of the patient. There are NO changes in the patient's condition. Risks, benefits, and alternatives have been discussed and questions answered. Patient agrees to proceed with procedure.
--- NOTE | 2022-05-06 07:19 | W.PM.PROC2 ---
Procedure Note - Detailed Date of Procedure 05/06/22 Pre-op Diagnosis Hx of Breast Augmentation with left rupture, Breast Ptosis Post-op Diagnosis Same Procedure Performed Bilateral breast implant exchange with mastopexy Surgeon John Grossman MD Anesthesia General Findings Bilateral Inverted T Superior Pedicle Previous Implants: Bilateral 68MP-480 smooth saline. No worriseome features. New Implants: Bilateral smooth saline filled to 600cc Right - REF# 68MP-550 SN [id number] Left - REF# 68MP-550 SN [id number] Firm mass noted: Right breast 3cm inferior to areola along vertical incision. Left breast at inferior areola along superior aspect of vertical incision. Description of Procedure She is here today for bilateral breast implant exchange (for ruptured left implant) and mastopexy. She has a history of a lollipop style incision and understands this increases her risks including but not limited too nipple / areola sensation change and loss (). She would like to increase the width of her implants; however, she understands we do not know what implants she has and we can not guarantee final implants due to this. Previously and again today the risks, benefits, alternatives were discussed in extensive detail. I wanted her to be very realistic about the risks involved as well as expectations. We discussed aftercare and what to monitor for. Made sure answered all of her questions to her satisfaction today and consent was obtained. Marked in the preoperative holding area with their verification. The patient was taken to the operating room placed supine on the operating table. Anesthesia was provided by anesthesiology. A surgical time-out was taken. We cleansed the skin and 1% lidocaine and 0.25% Marcaine with epinephrine was used anesthetize as a field block. She was prepped and draped in a standard sterile fashion. Tegaderm nipple [place] were placed. A 15 blade used to make an incision just superior to the inframammary fold leaving a cusp of de-epithelized tissue at the t junction. Dissection was continued until the previous implant was identified and these were removed. I then copiously irrigated with saline solution on TUR tubing and verified a strict hemostasis. Next the use a triple antibiotic and Betadine containing solution to irrigate the pocket. I washed my gloves with the triple antibiotic and Betadine solution. On the right breast lateral capsulorraphy was completed to correct the pocket size. On the back table we soaked the implant in betadine solution. Air was removed and using a fill kit after placing the implant it was filled to the volume above. The fill tube was removed and I verified the valve was seated. Having verified positioning of the implant this was closed using 2-0 PDS. I tailor tacked the breast into position. Placed her in a sitting position. Verified the nipple-areolar location based on preoperative planning as well as intraoperative observations and measurements in full agreement. She was placed supine. I de-epithelialized the pedicle. I then removed the inferior central portion of the breast need making sure the implant was well protected. While doing this two separate firm masses were noted and excised as above and sent to pathology.. I elevated medial and lateral tissue flaps as well for planned closure. I closed along the IMF with 2-0 Stratafix. Along the vertical with 2-0 PDS. I closed around the areola with 3-0 strata fix. 3-0 Monocryl along the vertical. 3-0 Stratafix along the IMF. I finally closed everything with running subcuticular 4-0 Monocryl and tissue glue. Fluffs and surgical bra were placed. Estimated Blood Loss 100 Drains No Packing No Pathology Yes (Bilateral breast tissue) Complications No immediate complications Condition Stable Disposition PACU
--- NOTE | 2022-05-06 07:23 | WPDANESEPPF ---
Anes - Initial Pre Proc Eval Procedure: Operation Date: 05/06/22 07:30 Proposed Procedures p Bilateral Breast Implant Exchange - John Grossman MD s Bilateral Breast Mastopexy - John Grossman MD Date/Time: 05/06/22 07:23 Surgeon: John Grossman MD Pre Op Diagnosis: Hx of Breast Aug, Breast Ptosis Patient Data Age: 61 Gender: F Height: 1.73 m Weight: 77.4 kg Last Vital Signs Temp 97.7 F 05/06/22 06:18 Pulse 81 05/06/22 06:18 Resp 16 05/06/22 06:18 BP 113/72 05/06/22 06:18 Pulse Ox 98 05/06/22 06:18 O2 Del Method Room Air 05/06/22 06:18 Allergies Allergy/AdvReac Type Severity Reaction Status Date / Time No Known Allergies Allergy Verified 05/06/22 06:25 Home Medications Medication Instructions Recorded Confirmed Type semaglutide 0.25 mg or 0.5 mg (2 1 mg subcut WEEKLY 06/15/19 05/06/22 History mg/1.5 mL) subcutaneous pen injector (Ozempic) insulin glargine 100 unit/mL (3 18 - 22 unit subcut HS 08/15/19 05/06/22 History mL) subcutaneous pen (Lantus Solostar U-100 Insulin) cholecalciferol (vitamin D3) 125 125 mcg PO WEEKLY 05/17/20 05/06/22 History mcg (5,000 unit) tablet (Vitamin D3) gabapentin 300 mg capsule 300 mg PO TID 05/17/20 05/06/22 History metformin 1,000 mg tablet 1,000 mg PO BID 05/17/20 05/06/22 History pantoprazole 40 mg tablet,delayed 40 mg PO BID #180 tabs 09/13/21 05/06/22 Rx release lisinopril 20 1 tablet PO DAILY #90 tabs 12/09/21 05/06/22 Rx mg-hydrochlorothiazide 25 mg tablet pravastatin 40 mg tablet 40 mg PO DAILY #30 tabs 01/15/22 05/06/22 Rx tizanidine 4 mg tablet 4 mg PO TID PRN muscle spasticity 04/07/22 05/06/22 Rx #30 tabs clonazepam 1 mg tablet 1 mg PO DAILY PRN anxiety #30 tabs 05/01/22 05/06/22 Rx tramadol 50 mg tablet 50 mg PO Q6H PRN pain #100 tabs 05/01/22 05/06/22 Rx Laboratory Tests 05/06/22 05/06/22 06:16 06:41 POC Capillary Glucose 134 mg/dl H mg/dl (65-105) Cotinine Negative Patient hx anesthesia problems: none Family hx anesthesia problems: none Results Review: All pre-operative results and documents have been reviewed as part of the pre-operative evaluation. [facility] Past Medical History Medical History (Updated 05/01/22 @ 09:33 by Chapito Lopes MD) Anxiety Diabetes Diabetic polyneuropathy associated with type 2 diabetes mellitus Essential (primary) hypertension Fatty (change of) liver, not elsewhere classified Food impaction of esophagus High cholesterol Hypertension Major depressive disorder, single episode, unspecified Obesity Restless legs syndrome Right shoulder pain Type 2 diabetes mellitus without complications Urge incontinence of urine Surgical History Surgical History H/O knee surgery Family History Family History Father Hypertension Family history of diabetes mellitus in first degree relative, Onset Age: 62 Patient's father is Family history of type 2 diabetes mellitus Family history of lupus erythematosus Mother Hypertension Carcinoma of colon Family history of type 2 diabetes mellitus Patient's mother is Sibling Hypertension Patient's sister is in good health Other Diabetes mellitus Family history of arthritis Social History Social History Smoking status: Never smoker Second hand tobacco smoke exposure: Yes Alcohol intake: never Substance use: never Substance use type: does not use Lack of Transportation: No Lack of Food: Never True Current Housing: I Have Housing Concerned About Future Housing: No Difficulty Paying Gas/Electric Bills: No Difficulty Paying for Meds: No Currently Unemployed: No Education: High School Diploma/GED Difficulty w/ Childcare or Family Care: No Living arran
[2022-05-06] MEDS: TRANEXAMIC ACID 1,000MG/ISO100 1,000 MG/100 ML BAG 200 MG IVPB (07:28)
[2022-05-06] MEDS: ceFAZolin 2 GM/D5W 50 ML 2 GM/50 ML BAG IVPB (07:36)
[2022-05-06] MEDS: NACL 0.9% IRRIG POUR BOTTLE 900 ML, GENTAMICIN SULFATE INJ 160 MG, ceFAZolin 2 GM, POVI... IRRIGATION (08:08)
[2022-05-06] MEDS: LIDO 1%/EPINEPHRINE 1:100,000 20 ML VIAL 30 ML INFILTRATE (08:14)
[2022-05-06] MEDS: BUPivacaine HCL 0.25% PF 30 ML VIAL INFILTRATE (08:15)
[2022-05-06] MEDS: fentaNYL CITRATE INJ (*CRX) 100 MCG/2 ML VIAL 25 MCG IV PUSH ×8 (10:49→11:16)
[2022-05-06 11:09] LABS: Glucose Point of Care 182 mg/dl (65-105)
[2022-05-06] MEDS: HYDROmorphone HCL INJ (*CRX) 1 MG/ML SYR 0.5 MG IV PUSH ×2 (11:23→11:29)
[2022-05-06] MEDS: ONDANSETRON INJ 4 MG/2 ML VIAL IV PUSH (12:19)
[2022-05-06] MEDS: oxyCODONE HCL (*CRX) 5 MG TAB IR PO (12:34)
== END 2022-05-06 13:05 | disposition home or self-care (01) ==
PROVIDERS: PCP Internal Medicine; Visit Provider Surgery Plastic and Reconstructive Surgery
PROC: (CPT 19370; principal; 2022-05-06 07:30)
PROC: (CPT 19316; 2022-05-06 07:30)
DX: T85.41XA Breakdown (mechanical) of breast prosthesis and implant, initial encounter (principal); N60.02 Solitary cyst of left breast; N60.01 Solitary cyst of right breast; N64.81 Ptosis of breast; Y83.8 Other surgical procedures as the cause of abnormal reaction of the patient, or of later complication, without mention of misadventure at the time of the procedure; E11.42 Type 2 diabetes mellitus with diabetic polyneuropathy; I10 Essential (primary) hypertension; E78.00 Pure hypercholesterolemia, unspecified; K76.0 Fatty (change of) liver, not elsewhere classified; G25.81 Restless legs syndrome; F32.9 Major depressive disorder, single episode, unspecified; F41.9 Anxiety disorder, unspecified; Z79.899 Other long term (current) drug therapy; Z79.4 Long term (current) use of insulin; Z79.84 Long term (current) use of oral hypoglycemic drugs
CPT/HCPCS: 19370; 19316; 19325; 80307; 82948; 88305; A9270; J0690; J1100; J1170; J1580; J2250; J2405; J2704; J3010; J7030; J7120

== ENCOUNTER 2022-07-16 11:10 | Outpatient (CLI) | payer BC, SELFPAY ==
--- NOTE | ~2022-07-16 | XR_ITS ---
XR sacrum coccyx min 2V 07/16/2022 11:30 Indication: Sacrococcygeal disorders Procedure: 3 views of the sacrum/coccyx Comparison: No prior studies for comparison. Findings: No acute fracture of the sacrum/coccyx. Sacral foramen are symmetric. Sacroiliac joints are symmetric bilaterally. There is mild lower lumbar spondylosis partially visualized. There are pelvic phleboliths. Impression: 1: No significant abnormality of the sacrum/coccyx. Reviewed, dictated and finalized at location B. Impression: 1: No significant abnormality of the sacrum/coccyx.
--- NOTE | ~2022-07-16 | XR_ITS ---
AP view of the pelvis and AP and lateral views of the right hip Clinical history: Pain Findings: No acute fracture or dislocation is seen. Osseous alignment is anatomic. Bilateral hip and SI joint spaces are preserved. Soft tissues are unremarkable. Impression: No significant abnormality is seen. Reviewed, dictated and finalized at location . Impression: No significant abnormality is seen.
== END 2022-07-16 11:11 | disposition home or self-care (01) ==
LOC: ANHIMG 11:12
PROVIDERS: PCP Family Medicine; Visit Provider Family Medicine
DX: M53.3 Sacrococcygeal disorders, not elsewhere classified (principal); M25.559 Pain in unspecified hip
CPT/HCPCS: 72220; 73502

== ENCOUNTER 2022-09-29 14:32 | Outpatient (CLI) | payer BC, SELFPAY ==
--- NOTE | 2022-09-29 14:51 | ECG_ITS ---
Measurements Intervals [place] Rate: 74 P: 63 [place]: 182 QRS: 20 QRSD: 108 T: 61 QT: 391 QTc: 434 Interpretive Statements SINUS RHYTHM BORDERLINE ST-T WAVE ABNORMALITY- INFERIOR LEADS BASELINE WANDER- I, II, III BORDERLINE ECG COMPARED TO ECG 05/02/2022 10:25:22 SINUS RHYTHM NOW PRESENT Electronically Signed On 09-29-2022 16:40:21 CDT by Alpesh Kang D.O.
[2022-09-29 15:00] LABS: Basophils Percent Auto 0.3 % (0.2-1.2); Eosinophils Absolute Auto 0.2 K/mm3 (0-0.3); Eosinophils Percent Auto 1.9 % (0-4.4); Hematocrit 35.5 % (37.0-47.0); Hemoglobin 11.2 g/dL (12.0-15.0); Immature Granulocyte Absolute 0.04 K/mm3 (0.00-0.031); Immature Granulocyte Percent A 0.5 % (0-0.5); Lymphocytes Absolute Auto 2.98 K/mm3 (0.9-3.2); Lymphocytes Percent Auto 33.6 % (18.3-44.2); Mean Corpuscular HGB Conc 31.5 g/dl (32-36); Mean Corpuscular Hemoglobin 26.9 pg (26-34); Mean Corpuscular Volume 85.1 fl (80-100); Mean Platelet Volume 10.3 fl (7.4-10.4); Monocytes Absolute Auto 0.3 K/mm3 (0.1-0.6); Monocytes Percent Auto 3.2 % (2.6-8.5); Neutrophils Absolute Auto 5.4 K/mm3 (1.3-6.7); Neutrophils Percent Auto 60.5 % (45.5-73.1); Platelet Count Result 277 k/mm3 (150-375); Red Blood Count 4.17 M/mm3 (4.2-5.4); Red Cell Distribution Width 12.6 % (11.5-14.5); White Blood Count 8.9 K/mm3 (4.5-10.0)
[2022-09-29 15:06] LABS: Appearance Urine Clear (Clear); Bilirubin Urine Negative (Negative); Blood Urine Negative (Negative); Color Urine Yellow (Yellow); Glucose Urine UA Negative (Negative); Ketones Urine Negative (Negative); Leukocyte Esterase Ur Negative LEU/UL (Negative); Nitrate Urine Negative (Negative); Protein Urine Negative (Negative); Urobilinogen Urine 0.2 mg/dL (<2.0); pH Urine 5.5 (5.0-9.0)
[2022-09-29 15:12] LABS: Add Urine Microscopic? NO
[2022-09-29 15:16] LABS: Anion Gap 9 mmol/L (8-16); Blood Urea Nitrogen 20 mg/dL (7-17); Calcium 9.6 mg/dL (8.4-10.2); Carbon Dioxide 26 mmol/L (22-30); Chloride 99 mmol/L (98-107); Estimated Glomerular Filt Rate 46; Glucose 138 mg/dL (65-110); Potassium 3.5 mmol/L (3.4-5.0); Sodium 134 mmol/L (137-145)
[2022-09-29 16:02] LABS: Hemoglobin A1C 6.4 % (<5.7)
== END 2022-09-29 14:33 | disposition home or self-care (01) ==
PROVIDERS: PCP Family Medicine; Visit Provider Orthopaedic Surgery
DX: I12.9 Hypertensive chronic kidney disease with stage 1 through stage 4 chronic kidney disease, or unspecified chronic kidney disease (principal); N18.30 Chronic kidney disease, stage 3 unspecified; E11.22 Type 2 diabetes mellitus with diabetic chronic kidney disease; M17.11 Unilateral primary osteoarthritis, right knee; N39.0 Urinary tract infection, site not specified
CPT/HCPCS: 36415; 80048; 81003; 83036; 85025; 93005

== ENCOUNTER 2023-06-09 01:23 | Day surgery (SDC) | payer BC, SELFPAY ==
[2023-05-27 08:25] VITALS: BMI 26.1
--- NOTE | 2023-06-05 10:03 | SUR.PREOP ---
Patient called regarding upcoming procedure. Reviewed preop instructions, appointment times, and procedure prep.
--- NOTE | 2023-06-09 10:32 | WPDANESEPPF ---
Anes - Initial Pre Proc Eval Procedure: Operation Date: 06/09/23 11:30 Proposed Procedures p Esophagogastroduodenoscopy - Mina Basurto MD Date/Time: 06/09/23 10:32 Surgeon: Mina Basurto MD Pre Op Diagnosis: GERD, Dysphagia Patient Data Age: 62 Gender: F Height: 1.73 m Weight: 78 kg Allergies Allergy/AdvReac Type Severity Reaction Status Date / Time No Known Allergies Allergy Verified 06/09/23 10:28 Home Medications Medication Instructions Recorded Confirmed Type semaglutide 0.25 mg or 0.5 mg (2 1 mg subcut WEEKLY 06/15/19 06/09/23 History mg/1.5 mL) subcutaneous pen injector (Ozempic) cholecalciferol (vitamin D3) 125 125 mcg PO [id number] 05/17/20 05/27/23 History mcg (5,000 unit) tablet (Vitamin D3) gabapentin 300 mg capsule 300 mg PO TID 05/17/20 05/27/23 History metformin 1,000 mg tablet 1,000 mg PO BID 05/17/20 05/27/23 History lisinopril 20 1 tablet PO DAILY #90 tabs 12/31/22 05/27/23 Rx mg-hydrochlorothiazide 25 mg tablet pantoprazole 40 mg tablet,delayed 40 mg PO BID #180 tabs 12/31/22 05/27/23 Rx release pravastatin 40 mg tablet 40 mg PO DAILY #90 tabs 01/20/23 05/27/23 Rx ropinirole 2 mg tablet See Rx Instructions .Route 03/16/23 05/27/23 Rx .COMPLEX #90 tabs quinine sulfate 324 mg capsule 324 mg PO DAILY 04/01/23 05/27/23 History turmeric 400 mg capsule 400 mg PO DAILY 04/01/23 05/27/23 History clonazepam 0.5 mg tablet 0.5 mg PO DAILY #30 tabs 05/04/23 05/27/23 Rx tramadol 50 mg tablet 50 mg PO Q6H PRN pain #100 tabs 06/01/23 06/09/23 Rx Patient hx anesthesia problems: none Family hx anesthesia problems: none Results Review: All pre-operative results and documents have been reviewed as part of the pre-operative evaluation. PMFSH Past Medical History Medical History Anxiety Diabetes Diabetic polyneuropathy associated with type 2 diabetes mellitus Essential (primary) hypertension Fatty (change of) liver, not elsewhere classified Food impaction of esophagus High cholesterol Hypertension Major depressive disorder, single episode, unspecified Obesity Restless legs syndrome Right shoulder pain Rotator cuff tendonitis Type 2 diabetes mellitus without complications Urge incontinence of urine UTI (urinary tract infection) Surgical History Surgical History H/O knee surgery Hx of arthroscopy of right knee 08/24/2019 Family History Family History Father Hypertension Family history of diabetes mellitus in first degree relative, Onset Age: 62 Patient's father is Family history of type 2 diabetes mellitus Family history of lupus erythematosus Mother Hypertension Carcinoma of colon Family history of type 2 diabetes mellitus Patient's mother is Sibling Hypertension Patient's sister is in good health Other Diabetes mellitus Family history of arthritis Social History Social History Smoking status: Never smoker Second hand tobacco smoke exposure: Yes Alcohol intake: never Substance use: never Substance use type: does not use Lack of Transportation: No Lack of Food: Never True Current Housing: I Have Housing Concerned About Future Housing: No Difficulty Paying Gas/Electric Bills: No Difficulty Paying for Meds: No Currently Unemployed: No Education: High School Diploma/GED Difficulty w/ Childcare or Family Care: No Living arrangements: with family Gender identity (if verbalized by the patient): Female Spiritual care concerns: No Anes - Eval Final PreProcedure Day of Procedure 06/09/23 10:32 Patient weight: normal Heart: regular rate and rhythm Lungs: clear to auscultation Airway: Mallampati scale class II Neurological: alert and o
[2023-06-09] MEDS: LACTATED RINGERS 1,000 ML 150 ML IV CONT (10:38)
[2023-06-09 10:39] VITALS: BP 122/67; PULSE 80; RESP 16; TEMP 36.5; O2SAT 99
[2023-06-09 10:40] LABS: Glucose Point of Care 118 mg/dl (65-105)
--- NOTE | 2023-06-09 11:17 | PM.HPGS ---
History of Present Illness History of Present Illness Consent: Risks, benefits, and alternatives have been discussed and questions answered. Patient agrees to proceed with procedure. Chief complaint: GERD, Dysphagia Narrative: Ciara Ramos is a 62 year old female here for EGD, last one about 2 years ago with dilatation. She has known history of GE reflux.? She has had an esophageal stricture.? At 1 point had esophageal obstruction from a food bolus, she is using protonix twice daily Review of Systems Review of Systems: All systems reviewed & are unremarkable except as noted in HPI and below PMFSH Past Medical History Medical History Anxiety Diabetes Diabetic polyneuropathy associated with type 2 diabetes mellitus Essential (primary) hypertension Fatty (change of) liver, not elsewhere classified Food impaction of esophagus High cholesterol Hypertension Major depressive disorder, single episode, unspecified Obesity Restless legs syndrome Right shoulder pain Rotator cuff tendonitis Type 2 diabetes mellitus without complications Urge incontinence of urine UTI (urinary tract infection) Surgical History Surgical History H/O knee surgery Hx of arthroscopy of right knee 08/24/2019 Family History Family History Father Hypertension Family history of diabetes mellitus in first degree relative, Onset Age: 62 Patient's father is Family history of type 2 diabetes mellitus Family history of lupus erythematosus Mother Hypertension Carcinoma of colon Family history of type 2 diabetes mellitus Patient's mother is Sibling Hypertension Patient's sister is in good health Other Diabetes mellitus Family history of arthritis Social History Social History Smoking status: Never smoker Second hand tobacco smoke exposure: Yes Alcohol intake: never Substance use: never Substance use type: does not use Lack of Transportation: No Lack of Food: Never True Current Housing: I Have Housing Concerned About Future Housing: No Difficulty Paying Gas/Electric Bills: No Difficulty Paying for Meds: No Currently Unemployed: No Education: High School Diploma/GED Difficulty w/ Childcare or Family Care: No Living arrangements: with family Gender identity (if verbalized by the patient): Female Spiritual care concerns: No Meds Home Medications and Allergies Home Medications Medication Instructions Recorded Confirmed Type semaglutide 0.25 mg or 0.5 mg (2 1 mg subcut WEEKLY 06/15/19 06/09/23 History mg/1.5 mL) subcutaneous pen injector (Ozempic) cholecalciferol (vitamin D3) 125 125 mcg PO [id number] 05/17/20 05/27/23 History mcg (5,000 unit) tablet (Vitamin D3) gabapentin 300 mg capsule 300 mg PO TID 05/17/20 05/27/23 History metformin 1,000 mg tablet 1,000 mg PO BID 05/17/20 05/27/23 History lisinopril 20 1 tablet PO DAILY #90 tabs 12/31/22 05/27/23 Rx mg-hydrochlorothiazide 25 mg tablet pantoprazole 40 mg tablet,delayed 40 mg PO BID #180 tabs 12/31/22 05/27/23 Rx release pravastatin 40 mg tablet 40 mg PO DAILY #90 tabs 01/20/23 05/27/23 Rx ropinirole 2 mg tablet See Rx Instructions .Route 03/16/23 05/27/23 Rx .COMPLEX #90 tabs quinine sulfate 324 mg capsule 324 mg PO DAILY 04/01/23 05/27/23 History turmeric 400 mg capsule 400 mg PO DAILY 04/01/23 05/27/23 History clonazepam 0.5 mg tablet 0.5 mg PO DAILY #30 tabs 05/04/23 05/27/23 Rx tramadol 50 mg tablet 50 mg PO Q6H PRN pain #100 tabs 06/01/23 06/09/23 Rx Allergies Allergy/AdvReac Type Severity Reaction Status Date / Time No Known Allergies Allergy Verified 06/09/23 10:28 Vital Signs Vital Signs - 24 hr 06/09/23 10:39 Temperature 97.7 F Pulse Rate 80 Re
[2023-06-09 11:32] VITALS: BP 103/66; PULSE 80; RESP 21; O2SAT 98
[2023-06-09 11:42] VITALS: BP 103/68; PULSE 77; RESP 14; O2SAT 98
[2023-06-09 11:52] VITALS: BP 109/73; PULSE 75; RESP 20; O2SAT 100
== END 2023-06-09 11:55 | disposition home or self-care (01) ==
PROVIDERS: PCP Family Medicine; Visit Provider Internal Medicine Gastroenterology
PROC: 0DJ08ZZ Inspection of Upper Intestinal Tract, Via Natural or Artificial Opening Endoscopic (ICD-10-PCS; CPT 43235; principal; 2023-06-09 11:30)
DX: K22.2 Esophageal obstruction (principal); K21.00 Gastro-esophageal reflux disease with esophagitis, without bleeding; K29.50 Unspecified chronic gastritis without bleeding; E11.42 Type 2 diabetes mellitus with diabetic polyneuropathy; E78.00 Pure hypercholesterolemia, unspecified; K76.0 Fatty (change of) liver, not elsewhere classified; F32.9 Major depressive disorder, single episode, unspecified; F41.9 Anxiety disorder, unspecified; G25.81 Restless legs syndrome; Z79.84 Long term (current) use of oral hypoglycemic drugs; Z79.85 Long-term (current) use of injectable non-insulin antidiabetic drugs
CPT/HCPCS: 43249; 43239; 82948; 88305; C1726; J2704; J7120

== ENCOUNTER 2023-07-16 13:15 | Outpatient (CLI) | payer BC, SELFPAY ==
--- NOTE | ~2023-07-16 | XR_ITS ---
XR shoulder RT min 2V DATE: 07/16/2023 13:28 INDICATION: Right shoulder pain. History of previous tear. TECHNIQUE: 4 views COMPARISON: 03/20/2022 right shoulder FINDINGS: No fracture or dislocation, periosteal reaction or bone destruction. Normal alignment of th e acromioclavicular and glenohumeral joints. No abnormal soft tissue calcification is noted. IMPRESSION: No significant abnormality Reviewed, dictated and finalized at location B. IMPRESSION: No significant abnormality
== END 2023-07-16 13:16 | disposition home or self-care (01) ==
LOC: ANHIMG 13:16
PROVIDERS: PCP Family Medicine; Visit Provider Family Medicine
DX: M25.511 Pain in right shoulder (principal); G89.29 Other chronic pain
CPT/HCPCS: 73030

== ENCOUNTER 2023-11-11 10:32 | Outpatient (CLI) | payer BC, SELFPAY ==
--- NOTE | ~2023-11-11 | MR_ITS ---
EXAMINATION: MR brain/brain stem wo con DATE: 11/11/2023 11:17 INDICATION: Dystonia. Muscle spasms of the lower extremities. TECHNIQUE: Magnetic resonance imaging (MRI) of the brain and brainstem was performed without intraven ous contrast. COMPARISON: None. FINDINGS: There are scattered areas of nonspecific increased T2-weighted signal intensity in the cere bral white matter, which is within normal limits for the patient's age. There is no intracranial hem orrhage, acute infarction, or abnormal intracranial mass lesion. The ventricles are normal in size. T he orbits are normal. The paranasal sinuses are clear. There is a trace left mastoid effusion. IMPRESSION: 1. Normal brain. Reviewed, dictated and finalized at location A. IMPRESSION: 1. Normal brain.
--- NOTE | ~2023-11-11 | MR_ITS ---
EXAMINATION: MR lumbar spine wo con DATE: 11/11/2023 11:30 INDICATION: Spinal stenosis. Muscle spasms of both lower extremities. TECHNIQUE: Magnetic resonance imaging (MRI) of the lumbar spine was performed without intravenous con trast. Sequences included sagittal T2-weighted FSE, sagittal T2-weighted FS FSE, sagittal T1-weighted FSE, and axial T2-weighted FSE. COMPARISON: None FINDINGS: There is 3 mm anterolisthesis of L4 on L5. Vertebral body heights are normal. Intervertebra l disc heights are normal. The distal spinal cord signal intensity is normal. The conus medullaris is at T12-L1. The following disc levels are specifically discussed: L1-L2: The disc is bulging. There is mild bilateral facet joint osteoarthritis. There is mild bilater al neural foraminal stenosis. There is mild central canal stenosis. L2-L3: The disc is bulging. There is moderate right and mild left facet joint osteoarthritis. There i s mild bilateral neural foraminal stenosis. There is mild central canal stenosis. L3-L4: The disc is mildly bulging. There is mild bilateral facet joint osteoarthritis. There is mild bilateral neural foraminal stenosis. There is no central canal stenosis. L4-L5: The disc is bulging. There is severe bilateral facet joint osteoarthritis. There is mild bilat eral neural foraminal stenosis. There is mild central canal stenosis. L5-S1: The disc is bulging. There is mild right and severe left facet joint osteoarthritis. There is mild bilateral neural foraminal stenosis. There is mild central canal stenosis. IMPRESSION: 1. Mild lumbar spondylosis. Reviewed, dictated and finalized at location A. IMPRESSION: 1. Mild lumbar spondylosis.
== END 2023-11-11 10:33 | disposition home or self-care (01) ==
PROVIDERS: PCP Family Medicine; Visit Provider Student in an Organized Health Care Education/Training Program
DX: M62.838 Other muscle spasm (principal)
CPT/HCPCS: 70551; 72148

== ENCOUNTER 2023-12-15 08:31 | Outpatient (CLI) | payer BC, SELFPAY ==
--- NOTE | ~2023-12-15 | MR_ITS ---
MRI of the right shoulder Technique: Axial proton-density fat-sat images, coronal proton density fat-sat and T2 fat-sat images, and sagittal T1-weighted and T2 fat-sat images were acquired. Clinical History: Pain Findings: There is advanced AC joint degenerative change with fluid in the joint space and small suba cromial spur. There is bony productive change at the distal clavicle. Coracoclavicular, coracoacromia l, and coracohumeral ligaments appear intact. There is moderate supraspinatus and infraspinatus tendinosis. There is probable high-grade to full-th ickness tear at the distal supraspinatus tendon insertion, measuring approximately 1.3 x a 0.6 cm in extent. Subscapularis tendon is intact with moderate tendinosis. Tendon of long head of the biceps is intact. No labral tear evident. Inferior glenohumeral ligament is intact. No degenerative change or effusion of the glenohumeral join t. No significant fluid within the subacromial/subdeltoid bursa. No muscle atrophy or edema. Impression: Probable high-grade partial or full-thickness tear at the distal supraspinatus tendon insertion, mauro uring 1.3 x 0.6 cm in extent. Background moderate diffuse rotator cuff tendinosis. Advanced AC joint degenerative change. Reviewed, dictated and finalized at [facility]. Impression: Probable high-grade partial or full-thickness tear at the distal supraspinatus tendon insertion, measuring 1.3 x 0.6 cm in extent. Background moderate diffuse rotator cuff tendinosis. Advanced AC joint degenerative change.
== END 2023-12-15 08:32 | disposition home or self-care (01) ==
LOC: GOSHIMG 08:32
PROVIDERS: PCP Family Medicine; Visit Provider Orthopaedic Surgery
DX: M75.101 Unspecified rotator cuff tear or rupture of right shoulder, not specified as traumatic (principal); M19.011 Primary osteoarthritis, right shoulder
CPT/HCPCS: 73221

== ENCOUNTER 2024-01-01 11:19 | Outpatient (CLI) | payer BC, SELFPAY ==
--- NOTE | 2024-01-01 11:45 | ECG_ITS ---
Test Date: 2024-01-01 11:53:30 Measurements Intervals [place] Rate: 75 P: 65 ND: 178 QRS: 8 QRSD: 105 T: 44 QT: 374 QTc: 418 Interpretive Statements SINUS RHYTHM POSSIBLE LEFT ATRIAL ENLARGEMENT BASELINE ARTIFACT- II, III, AVF BORDERLINE ECG No previous ECG available for comparison Electronically Signed On 01-01-2024 12:24:29 CDT by Alpesh Kang D.O.
[2024-01-01 12:11] LABS: Prothrombin Time 13.6 Seconds (11.1-14.7)
[2024-01-01 12:12] LABS: Partial Thromboplastin Time 31.8 Seconds (22.3-36.8)
== END 2024-01-01 11:20 | disposition home or self-care (01) ==
LOC: ANHSURGERY 11:33
PROVIDERS: Anesthesiology; PCP Family Medicine; Visit Provider Orthopaedic Surgery
DX: I12.9 Hypertensive chronic kidney disease with stage 1 through stage 4 chronic kidney disease, or unspecified chronic kidney disease (principal); N18.31 Chronic kidney disease, stage 3a; Z01.818 Encounter for other preprocedural examination
CPT/HCPCS: 36415; 85610; 85730; 93005

== ENCOUNTER 2024-04-20 10:15 | Outpatient (RCR) | payer BC, SELFPAY ==
--- NOTE | 2024-01-25 09:12 | OPREHPOC ---
Outpatient Therapy Plan of Care This is a Multidisciplinary Plan of Care that may contain components documented by all disciplines (PT, OT, and ST.) PT Problem 1 PT Problem #1 Knowledge Deficit PT Goal 1 Goal / Goal Update [place] with HEP Target Visit 4 PT Goal 2 Goal / Goal Update Consistently report pain of 0/10 at rest for 2 weeks Target Visit 8 PT Problem 2 PT Problem #2 Impaired Range of Motion PT Goal 1 Goal / Goal Update Achieve 170 degrees of R shoulder flexion Active ROM for improved functional reach Target Visit 10 PT Goal 2 Goal / Goal Update Achieve 85 degrees of R shoulder external rotation Active ROM for improved self care and dressing Target Visit 10 PT Problem 3 PT Problem #3 Impaired Strength PT Goal 1 Goal / Goal Update 1. Improve R shoulder flexion strength to 4+/5 to improve object lifting overhead ability 2. Improve R shoulder external rotation strength to 4+/5 to improve capsular stability for self care Target Visit 10 PT Problem 4 PT Problem #4 Impaired Functional Mobil PT Goal 1 Goal / Goal Update Demonstrate ability to lift 3# overhead to cabinet x 5 with no increased shoulder/cervical pain Target Visit 10
--- NOTE | 2024-01-25 09:12 | PTOPEVAL1 ---
Assessment and note entered by Elio Sanchez, PT Evaluation Information Assessment Status Evaluation Diagnosis s/p R shoulder arthroscopic rotator cuff repair ICD-10 Condition Codes (PT) M25.511 Onset 01/06/24 Subjective Information Patient is R handed. She reports that she is having pain in the shoulder and notes redness and hard spots under the shoulder. Denies pain in the hands but is getting some tingling in it. Reports that she is still taking pain medication but pain is improving. She has been using heat and ice consistently. Reported Pain Level Pain Score 5: Self Report Assessment PT Clinical Summary Patient presents with typical signs and symptoms of s/p rotator cuff repair. Patient has apprehension with motion, weakness, and decreased functional care ability. Patient has notable axillary irritation with what appears to be swollen lymphatic activity. Patient was instructed to keep axillary clean, dry, and aerated. Patient will benefit form skilled therpay to progress per protocol with ROM, strength, and functional training as needed. Plan of Care Interventions Electrical Stimulation,Hot Pack/Cold Pack,Manual Therapy,Neuro Re-education,Therapeutic Activities, Therapeutic Exercise PT Services Indicated Yes Treatment Frequency and 2x/week for 10 visits Duration These treatments will address the objective and functional deficits as defined above. The patient will be advanced safely and appropriately in order for the patient to progress towards his/her prior level of function. Additional exercises will be introduced and as well as a comprehensive home exercise program upon discharge, if needed, ?to ensure carryover of functional gains achieved in the clinic. This treatment plan has been reviewed and agreement upon by the patient.
--- NOTE | 2024-02-25 13:36 | OPREHPOC ---
Outpatient Therapy Plan of Care This is a Multidisciplinary Plan of Care that may contain components documented by all disciplines (PT, OT, and ST.) PT Problem 1 PT Problem #1 Knowledge Deficit PT Goal 1 Goal / Goal Update [place] with HEP Target Visit 4 Progress Met PT Goal 2 Goal / Goal Update Consistently report pain of 0/10 at rest for 2 weeks Target Visit 18 Progress Not Met PT Problem 2 PT Problem #2 Impaired Range of Motion PT Goal 1 Goal / Goal Update Achieve 170 degrees of R shoulder flexion Active ROM for improved functional reach Target Visit 18 Progress Partially Met PT Goal 2 Goal / Goal Update Achieve 85 degrees of R shoulder external rotation Active ROM for improved self care and dressing Target Visit 18 Progress Partially Met PT Problem 3 PT Problem #3 Impaired Strength PT Goal 1 Goal / Goal Update 1. Improve R shoulder flexion strength to 4+/5 to improve object lifting overhead ability 2. Improve R shoulder external rotation strength to 4+/5 to improve capsular stability for self care Target Visit 18 Progress Partially Met PT Problem 4 PT Problem #4 Impaired Functional Mobility PT Goal 1 Goal / Goal Update Demonstrate ability to lift 3# overhead to cabinet x 5 with no increased shoulder/cervical pain Target Visit 18 Progress Not Met
--- NOTE | 2024-02-25 13:37 | PTOPPROG ---
Assessment and note entered by Elio Sanchez, PT Evaluation Information Assessment Status Progress Diagnosis s/p R shoulder arthroscopic rotator cuff repair ICD-10 Condition Codes (PT) Pain in right shoulder M25.511 Onset 01/06/24 Subjective Information Reports that she is progressing well overall. Reports that she does feel a little strain in the shoulder still but is not significantly limiting at this time. She is still having some trouble sleeping and was very active with her shoulder over the holiday. She is still having some issues with self care such as dressing and working on her hair. The more she pushes herself at this point the longer she feels the pain and discomfort in her shoulder. Assessment PT Clinical Summary Patient showing excellent progress to this point with improvement in both ROM and functional tolerance. She is suitable for progression to active assisted motion and isometrics and demonstrated decent tolerance to that integration today. Will benefit form continuation of therapy to address these deficits for halfway functional solution. Plan of Care Interventions Electrical Stimulation,Hot Pack/Cold Pack,Manual Therapy,Neuro Re-education,Therapeutic Activities, Therapeutic Exercise PT Services Indicated Yes Treatment Frequency and 2x/week for 8 visits Duration These treatments will address the objective and functional deficits as defined above. The patient will be advanced safely and appropriately in order for the patient to progress towards his/her prior level of function. Additional exercises will be introduced and as well as a comprehensive home exercise program upon discharge, if needed, ?to ensure carryover of functional gains achieved in the clinic. This treatment plan has been reviewed and agreement upon by the patient.
--- NOTE | 2024-03-17 10:02 | PCPTNOTE ---
Patient called to cancel therapy due to having a .
--- NOTE | 2024-03-25 10:02 | OPREHPOC ---
Outpatient Therapy Plan of Care This is a Multidisciplinary Plan of Care that may contain components documented by all disciplines (PT, OT, and ST.) PT Problem 1 PT Problem #1 Knowledge Deficit PT Goal 1 Goal / Goal Update [place] with HEP Target Visit 4 Progress Met PT Goal 2 Goal / Goal Update Consistently report pain of 0/10 at rest for 2 weeks Target Visit 18 Progress Partially Met PT Problem 2 PT Problem #2 Impaired Range of Motion PT Goal 1 Goal / Goal Update Achieve 170 degrees of R shoulder flexion Active ROM for improved functional reach Target Visit 18 Progress Met PT Goal 2 Goal / Goal Update Achieve 85 degrees of R shoulder external rotation Active ROM for improved self care and dressing Target Visit 18 Progress Met PT Problem 3 PT Problem #3 Impaired Strength PT Goal 1 Goal / Goal Update 1. Improve R shoulder flexion strength to 4+/5 to improve object lifting overhead ability 2. Improve R shoulder external rotation strength to 4+/5 to improve capsular stability for self care Target Visit 26 Progress Partially Met PT Problem 4 PT Problem #4 Impaired Functional Mobility PT Goal 1 Goal / Goal Update Demonstrate ability to lift 3# overhead to cabinet x 5 with no increased shoulder/cervical pain Target Visit 26 Progress Partially Met
--- NOTE | 2024-03-25 10:02 | PTOPPROG ---
Assessment and note entered by Elio Sanchez, PT Evaluation Information Assessment Status Progress Diagnosis s/p R shoulder arthroscopic rotator cuff repair ICD-10 Condition Codes (PT) Pain in right shoulder M25.511 Onset 01/06/24 Subjective Information Reports that she feels she is doing better overall . Shoulder motion feels very progressed but still feels very weak. Pain has been well controlled. Assessment PT Clinical Summary Patient has seen progress in ROM, strength, and function. Overall she is on pace with where she needs to be with therapy at this time. She continues to have significant weakness and will continue to benefit from killed therapy with emphasis on shoulder strength and stability moving forward. Plan of Care Interventions Electrical Stimulation,Hot Pack/Cold Pack,Manual Therapy,Neuro Re-education,Therapeutic Activities, Therapeutic Exercise PT Services Indicated Yes Treatment Frequency and 2x/week for 8 visits Duration These treatments will address the objective and functional deficits as defined above. The patient will be advanced safely and appropriately in order for the patient to progress towards his/her prior level of function. Additional exercises will be introduced and as well as a comprehensive home exercise program upon discharge, if needed, ?to ensure carryover of functional gains achieved in the clinic. This treatment plan has been reviewed and agreement upon by the patient.
--- NOTE | 2024-04-13 10:33 | PCPTNOTE ---
Patient canceled therapy this date with clerical. No reason given.
--- NOTE | 2024-04-15 12:55 | PCPTNOTE ---
Pt. did not show for Physical therapy appointment this date. Called and left voicemail and reminded pt. of her next upcoming appointment.
--- NOTE | 2024-04-25 11:05 | PCPTNOTE ---
This treatment is being continued on visit number [id number]. Please see documentation on both accounts to view progress. Completed interventions, outcomes, and problems have been marked as Inactive to facilitate the copying of the Care plan routine for recurring accounts.
== END 2024-04-24 23:59 | disposition home or self-care (01) ==
LOC: ANHGOSHPT 10:15
PROVIDERS: PCP Family Medicine; Visit Provider Orthopaedic Surgery
DX: M25.511 Pain in right shoulder (principal); Z98.890 Other specified postprocedural states
CPT/HCPCS: 97014; 97110; 97140; 97161; 97530; G0283

== ENCOUNTER 2024-04-29 10:00 | Outpatient (RCR) | payer BC, SELFPAY ==
--- NOTE | 2024-04-25 11:06 | PCPTNOTE ---
The treatment documented on this account is a continuation of the treatment documented on visit number [id number]. Please see documentation on both accounts to view progress. The Plan of Care has been transitioned and updated within the new V#. I have addressed and agree with the discipline specific Problems, Interventions, and Goals for the current certification period. Completed interventions, outcomes, and problems have been marked as Inactive to facilitate the copying of the Care plan routine for recurring accounts.
--- NOTE | 2024-04-29 10:51 | OPREHPOC ---
Outpatient Therapy Plan of Care This is a Multidisciplinary Plan of Care that may contain components documented by all disciplines (PT, OT, and ST.) PT Problem 1 PT Problem #1 Knowledge Deficit PT Goal 1 Goal / Goal Update [place] with HEP Target Visit 4 Progress Met PT Goal 2 Goal / Goal Update Consistently report pain of 0/10 at rest for 2 weeks Target Visit 18 Progress Partially Met PT Problem 2 PT Problem #2 Impaired Range of Motion PT Goal 1 Goal / Goal Update Achieve 170 degrees of R shoulder flexion Active ROM for improved functional reach Target Visit 18 Progress Met PT Goal 2 Goal / Goal Update Achieve 85 degrees of R shoulder external rotation Active ROM for improved self care and dressing Target Visit 18 Progress Met PT Problem 3 PT Problem #3 Impaired Strength PT Goal 1 Goal / Goal Update 1. Improve R shoulder flexion strength to 4+/5 to improve object lifting overhead ability 2. Improve R shoulder external rotation strength to 4+/5 to improve capsular stability for self care Target Visit 26 Progress Met PT Problem 4 PT Problem #4 Impaired Functional Mobility PT Goal 1 Goal / Goal Update Demonstrate ability to lift 3# overhead to cabinet x 5 with no increased shoulder/cervical pain Target Visit 26 Progress Met
--- NOTE | 2024-04-29 10:51 | PTOPDC ---
Assessment and note entered by Elio Sanchez, PT Evaluation Information Assessment Status Discharge Diagnosis s/p R shoulder arthroscopic rotator cuff repair ICD-10 Condition Codes (PT) Pain in right shoulder M25.511 Onset 01/06/24 Subjective Information Reports that she had a minor tweak last week but seems to be resolved at this time. No current concerns. The only thing that she feels she still has trouble with is reaching behind her head and doing her hair. Reported Pain Level Pain Score 1: Self Report Assessment PT Clinical Summary Patient has met all goals for therapy at this time and is suitable for discharge to [facility]. Strength is the only functional deficit but will take time and repetition to improve. Plan of Care PT Services Indicated Yes
== END 2024-04-29 11:57 | disposition home or self-care (01) ==
LOC: ANHGOSHPT 10:00
PROVIDERS: PCP Family Medicine; Visit Provider Orthopaedic Surgery
DX: M25.511 Pain in right shoulder (principal); Z98.890 Other specified postprocedural states
CPT/HCPCS: 97110; 97140; 97530